=== PATIENT | male | born 1970 | race Caucasian/White ===

== ENCOUNTER 2016-04-09 12:54 | Emergency (ER) | payer SELFPAY ==
[2016-04-09 13:32] VITALS: BP 149/110
--- NOTE | 2016-04-11 21:22 | ED Elopement Review ---
ED Pt Elopement review - Results review Lab results: Laboratory Tests 04/09/16 13:27 POC Glucose > 500 H - Call Back decision Pt Call Back Decision: No action required
== END 2016-04-09 13:45 | disposition left against medical advice (07) ==
LOC: ED 12:54
DX: E11.9 Type 2 diabetes mellitus without complications (principal); Z53.21 Procedure and treatment not carried out due to patient leaving prior to being seen by health care provider
CPT/HCPCS: 82962